=== PATIENT | male | born 1965 | race African-American/Black ===

== ENCOUNTER 2018-11-23 12:38 | Emergency (ER) | payer MEDICAID, OTHER ==
[~2018-11-23] VITALS: Ht 175.3 cm; Wt 65.8 kg
[~2018-11-23 12:38] MED LIST: CYCL10TA9 PO; FLUT9.9S NS; HYDR-3454 PO; NAPR550T PO
[2018-11-23 13:01] LABS: CLARITY,URINE CLOUDY; COLOR,URINE RED
[2018-11-23 13:02] LABS: BACTERIA,URINE MODERATE /HPF; BILIRUBIN,URINE NEGATIVE (NEGATIVE); GLUCOSE, URINE (UA) NEGATIVE (NEGATIVE); KETONES,URINE NEGATIVE (NEGATIVE); LEUKOCYTE ESTERASE ,URINE 2+ (NEGATIVE); NITRITE,URINE NEGATIVE (NEGATIVE); PROTEIN,URINE 2+ (NEGATIVE); RBC,URINE >100 /HPF; UROBILINOGEN,URINE 0.2 MG/DL (NORMAL); WBC,URINE >100 /HPF
[2018-11-23 13:03] LABS: AMORPHOUS SEDIMENT,UR MOD AMOR PHOSPHATE /LPF
[2018-11-23 13:28] LABS: BASOPHILS % (AUTO) 1 % (0-10); EOSINOPHILS % (AUTO) 3 % (0-10); HEMATOCRIT 45 % (40-54); HEMOGLOBIN 14.9 G/DL (13.3-17.7); LYMPHOCYTES # (AUTO) 1.7 X 10^3 (1.0-4.0); LYMPHOCYTES % (AUTO) 17 % (12-44); MEAN CORPUSCULAR HEMOGLOBIN 30 PG (25-34); MEAN CORPUSCULAR HGB CONC 33 G/DL (32-36); MEAN CORPUSCULAR VOLUME 91 FL (80-99); MEAN PLATELET VOLUME 10.6 FL (7.4-10.4); MONOCYTES % (AUTO) 8 % (0-12); NEUTROPHILS # (AUTO) 7.2 X 10^3 (1.8-7.8); NEUTROPHILS % (AUTO) 71 % (42-75); PLATELET COUNT 318 10^3/uL (130-400); RED CELL DISTRIBUTION WIDTH 17.2 % (10.0-14.5); WHITE BLOOD COUNT 10.1 10^3/uL (4.3-11.0)
[2018-11-23 13:29] LABS: BASOPHILS # (AUTO) 0.1 10^3/uL (0.0-0.1); EOSINOPHILS # (AUTO) 0.3 10^3/uL (0.0-0.3); MONOCYTES # (AUTO) 0.8 X 10^3 (0.0-1.0)
[2018-11-23 13:36] LABS: ALANINE AMINOTRANSFERASE 10 U/L (0-55); ALBUMIN 4.2 GM/DL (3.2-4.5); ALKALINE PHOSPHATASE 82 U/L (40-136); BILIRUBIN,TOTAL 0.8 MG/DL (0.1-1.0); BUN/CREATININE RATIO 12; CALCIUM 9.7 MG/DL (8.5-10.1); CARBON DIOXIDE 26 MMOL/L (21-32); CHLORIDE 100 MMOL/L (98-107); CREATININE SERUM 0.98 MG/DL (0.60-1.30); GFR ESTIMATED > 60; GLUCOSE 91 MG/DL (70-105); POTASSIUM 4.5 MMOL/L (3.6-5.0); SODIUM 140 MMOL/L (135-145)
--- NOTE | 2018-11-23 13:43 | ED GU-Female ---
General Chief Complaint: - Urinary Stated Complaint: ABD PAIN Nursing Triage Note: Started having urinary frequency and burning with urination yesterday. Is worse today and is having lower abdominal pain. Rates pain at 10/10 and has not taken anything for pain. Nursing Sepsis Screen: No Definite Risk Source: patient Exam Limitations: no limitations History of Present Illness Date Seen by Provider: Nov 23, 2018 Time Seen by Provider: 13:39 Initial Comments The patient is a 53-year-old black male who presents with complaints of urinary frequency burning and urgency. This began yesterday. This morning he awakened and also had flank pain and chills and a sweat. He has not previously had any history of urinary tract infection. Timing/Duration: yesterday Severity/Quality: moderate Location: generalized flank Radiation: suprapubic Allergies and Home Medications Allergies Coded Allergies: No Known Drug Allergies (Unverified , 06/27/13) Home Medications Fluticasone Propionate 9.9 Ml Rye.susp, 1 SPRAY NS DAILY Prescribed by: EBEN DUFFY on 12/19/15 1615 Patient Home Medication List Home Medication List Reviewed: Yes Review of Systems Review of Systems Constitutional: see HPI EENTM: no symptoms reported Respiratory: no symptoms reported Cardiovascular: no symptoms reported Gastrointestinal: no symptoms reported Genitourinary: see HPI Musculoskeletal: no symptoms reported Skin: no symptoms reported Psychiatric/Neurological: No Symptoms Reported Endocrine: No Symptoms Reported, Excessive Sweating Past Hjcqrad-Nfxzyh-Skhkqv Hx Patient Social History Alcohol Use: Regular Use Recreational Drug Use: No Smoking Status: Current Everyday Smoker Type Used: Cigarettes 2nd Hand Smoke Exposure: Yes Recent Foreign Travel: No Contact w/Someone Who Travel: No Recent Infectious Disease Expo: No Physical Abuse: No Sexual Abuse: No Mistreated: No Fear: No Past Medical History Reproductive Disorders: No Physical Exam Vital Signs Vital Signs - First Documented 11/23/18 12:45 Temp 98.3 Pulse 87 Resp 18 B/P (MAP) 136/104 (115) Pulse Ox 99 Capillary Refill : Less Than 3 Seconds Height, Weight, BMI Height: 5'9.00" Weight: 145lbs. oz. 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, no motor/sensory deficits Skin: normal color Lymphatic: no adenopathy Progress/Results/Core Measures Suspected Sepsis Recent Fever Within 48 Hours: No Infection Criteria Present: Suspected New Infection New/Unexplained Altered Menta: No Sepsis Screen: No Definite Risk SIRS Temperature:98.3 Pulse: 87 Respiratory Rate: 18 Laboratory Tests 11/23/18 13:05: White Blood Count 10.1 Blood Pressure 136 /104 Mean: 115 Laboratory Tests 11/23/18 13:05: Creatinine 0.98, Platelet Count 318, Total Bilirubin 0.8 Results/Orders Lab Results Laboratory Tests Test 11/23/18 12:44 11/23/18 13:05 Range/Units Urine Color RED H Urine Clarity CLOUDY Urine pH 7.0 5-9 Urine Specific Beaver 1.020 1.016-1.022 Urine Protein 2+ H NEGATIVE Urine Glucose (UA) NEGATIVE NEGATIVE Urine Ketones NEGATIVE NEGATIVE Urine Nitrite NEGATIVE NEGATIVE Urine Bilirubin NEGATIVE NEGATIVE Urine Urobilinogen 0.2 NORMAL MG/DL Urine Leukocyte Esterase 2+ H NEGATIVE Urine RBC (Auto) 3+ H NEGATIVE Urine RBC >100 H /HPF Urine WBC >100 H /HPF Urine Squamous Epithelial Cells 2-5 /HPF Urine Crystals PRESENT H /LPF Urine Amorphous Sediment MOD FRANKY PHOSPHATE H /LPF Urine Bacteria MODERATE H /HPF Urine Casts NONE /LPF Urine Mucus NEGATIVE /LPF Urine Culture Indicated YES White Blood Count 10.1 4.3-11.0 10^3/uL Red Blood Count 4.94 4.35-5.85 10^6/uL Hemoglobin 14.9 13.3-17.7 G/DL Hematocrit 45 40-54 % Mean Corpuscular Volume 91 80-99 FL Mean Corpuscular Hemoglobin 30 25-34 PG Mean Corpuscular Hemoglobin Concent 33 32-36 G/DL Red Cell Distribution Width 17.2 H 10.0-14.5 % Platelet Count 318 130-400 10^3/uL Mean Platelet Volume 10.6 H 7.4-10.4 FL Neutrophils (%) (Auto) 71 42-75 % Lymphocytes (%) (Auto) 17 12-44 % Monocytes (%) (Auto) 8 0-12 % Eosinophils (%) (Auto) 3 0-10 % Basophils (%) (Auto) 1 0-10 % Neutrophils # (Auto) 7.2 1.8-7.8 X 10^3 Lymphocytes # (Auto) 1.7 1.0-4.0 X 10^3 Monocytes # (Auto) 0.8 0.0-1.0 X 10^3 Eosinophils # (Auto) 0.3 0.0-0.3 10^3/uL Basophils # (Auto) 0.1 0.0-0.1 10^3/uL Sodium Level 140 135-145 MMOL/L Potassium Level 4.5 3.6-5.0 MMOL/L Chloride Level 100 98-107 MMOL/L Carbon Dioxide Level 26 21-32 MMOL/L Anion Gap 14 5-14 MMOL/L Blood Urea Nitrogen 12 7-18 MG/DL Creatinine 0.98 0.60-1.30 MG/DL Estimat Glomerular Filtration Rate > 60 BUN/Creatinine Ratio 12 Glucose Level 91 70-105 MG/DL Calcium Level 9.7 8.5-10.1 MG/DL Corrected Calcium 9.5 8.5-10.1 MG/DL Total Bilirubin 0.8 0.1-1.0 MG/DL Aspartate Amino Transf (AST/SGOT) 18 5-34 U/L Alanine Aminotransferase (ALT/SGPT) 10 0-55 U/L Alkaline Phosphatase 82 40-136 U/L Total Protein 8.0 6.4-8.2 GM/DL Albumin 4.2 3.2-4.5 GM/DL My Orders Orders - ALVINO SUERO MD Ua Culture If Indicated (11/23/18 12:49) Urine Culture (11/23/18 12:44) Cbc With Automated Diff (11/23/18 13:14) Comprehensive Metabolic Panel (11/23/18 13:14) Ct Abdomen/Pelvis W (11/23/18 13:37) Iohexol Injection (Omnipaque 350 Mg/Ml 1 (11/23/18 14:15) Received Contrast (Hold Metformin- Contr (11/23/18 14:15) Ns (Ivpb) (Sodium Chloride 0.9% Ivpb Bag (11/23/18 14:15) Sodium Chloride Flush (Catheter Flush Sy (11/23/18 14:15) Rocephin 1 Gm Iv (1x Dose) (11/23/18 15:00) Medications Given in ED Current Medications Medications Dose Ordered Sig/Tamara Route Start Time Stop Time Status Last Admin Dose Admin Iohexol 100 ml ONCE ONCE IV 11/23/18 14:15 11/23/18 14:50 DC 11/23/18 14:15 100 ML Sodium Chloride 10 ml NEEDED PRN IV 11/23/18 14:15 11/23/18 14:18 10 ML Sodium Chloride 100 ml ONCE ONCE IV 11/23/18 14:15 11/23/18 14:50 DC 11/23/18 14:16 40 ML Vital Signs/I&O 11/23/18 12:45 Temp 98.3 Pulse 87 Resp 18 B/P (MAP) 136/104 (115) Pulse Ox 99 Capillary Refill : Less Than 3 Seconds Blood Pressure Mean: 115 Departure Communication (Admissions) CT scan showed no evidence of pyelonephritis or other intra-abdominal pathology. Impression Primary Impression: Urinary tract infection Disposition: HOME, SELF-CARE Condition: Stable/Unchanged Departure-Patient Inst. Referrals: NO,LOCAL PHYSICIAN (PCP/Family) Primary Care Physician Patient Instructions: Urinary Tract Infection, Adult (DC) Add. Discharge Instructions: All discharge instructions reviewed with patient and/or family. Voiced understan sascha. Plenty of liquids Take Omnicef twice daily as directed. Begin tomorrow afternoon ALVINO SUERO MD Nov 23, 2018 13:43
--- NOTE | 2018-11-23 13:56 | NUR ---
Received call from [facility] stating that the transfer of patient to [place] will be delayed due to the other truck being [facility] the [facility].
[2018-11-23] MEDS ORDERED: HOLD METFORMIN - RECEIVED CONTRAST 20 ML VIAL IV SCH (14:15)
[2018-11-23] MEDS ORDERED: CATHETER FLUSH 10 ML SYR IV PRN (14:15)
[2018-11-23] MEDS ORDERED: IOHEXOL 350 MG/ML 100 ML (OMNIPAQUE 350) VIAL IV ONE (14:15)
[2018-11-23] MEDS ORDERED: NS 100 ML (IVPB) BAG IV ONE (14:15)
--- NOTE | 2018-11-23 14:53 | Diagnostic Imaging Report ---
PROCEDURE: CT abdomen and pelvis with contrast. TECHNIQUE: Multiple contiguous axial images were obtained through the abdomen and pelvis after administration of intravenous contrast. Auto Exposure Controls were utilized during the CT exam to meet ALARA standards for radiation dose reduction. INDICATION: Right flank pain. FINDINGS: Images through the lower chest show cardiomegaly. The lung bases are clear with no effusion. The liver, gallbladder, and bile ducts are normal. The spleen, pancreas, and adrenals are normal. There are several small renal cysts present. No calculus or hydronephrosis is seen on either side. The ureters and bladder are normal. No acute bowel abnormality is seen. The appendix is not visualized with no inflammation seen in the right lower quadrant. There is no free intraperitoneal air or fluid. There is no acute bony abnormality. IMPRESSION: No acute abnormality is seen. There is cardiomegaly. Dictated by: Dictated on workstation # [id number]
[2018-11-23] MEDS ORDERED: cefTRIAXone FOR IV USE 1,000 MG in WATER (STERILE) FOR INJECTION 10 ML IV ONE (15:00)
[2018-11-23] MEDS ORDERED: CEFD300C3 PO (15:04)
[2018-11-23 15:12] VITALS: BP 145/94
== END 2018-11-23 15:05 | disposition home or self-care (01) ==
LOC: EDUNIT# 12:38 → ER FS 12:40
DX: N39.0 Urinary tract infection, site not specified (principal); F17.210 Nicotine dependence, cigarettes, uncomplicated; Z79.51 Long term (current) use of inhaled steroids
CPT/HCPCS: 36415; 74177; 80053; 81000; 85025; 87077; 87088; 87186; 96374

== ENCOUNTER 2018-12-12 11:29 | Emergency (ER) | payer OTHER ==
[~2018-12-12] VITALS: Ht 175.3 cm; Wt 65.8 kg
[~2018-12-12 11:29] MED LIST changes: +CEFD300C3 PO
--- OUTSIDE RECORDS SUMMARY | 2018-12-12 11:34 | XMS REPORT ---
Author Author YOSELIN CARDENAS [facility] Address [address] [place] [address] Care Team Providers Care Alpaca Farmer Name Role Phone CORINNA CARDENASNETTE Unavailable PROBLEMS Unknown Problems ALLERGIES Substance Reaction Event Type Date Status N.K.D.A. Unknown Non Drug Allergy Feb, Unknown SOCIAL HISTORY No smoking Hx information available PLAN OF CARE Activity Details Follow Up 2 Weeks Reason: VITAL SIGNS Height 69 in 2016-02-27 Weight 131.0 lbs 2016-02-27 Temperature 98.4 degrees Fahrenheit 2016-02-27 Heart Rate 88 bpm 2016-02-27 Respiratory Rate 22 2016-02-27 BMI 19.34 kg/m2 2016-02-27 Blood pressure systolic 150 mmHg 2016-02-27 Blood pressure diastolic 108 mmHg 2016-02-27 MEDICATIONS Medication Instructions Dosage Frequency Start Date End Date Duration Status PredniSONE 10 mg Orally twice a day 1 tablet 12h Feb, Feb, 05 days Active Amoxicillin 875 MG Orally every 12 hrs 1 tablet 12h Feb, Feb, 10 day(s) Active RESULTS No Results PROCEDURES Procedure Date Ordered Related Diagnosis Body Site Office Visit, New Pt., Level 3 Feb 27, 2016 IMMUNIZATIONS No Known Immunizations
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
--- OUTSIDE RECORDS SUMMARY | 2018-12-12 11:34 | XMS REPORT ---
Author Author HOLLY SANCHEZ Organization [facility] Address [address] [place] [address] Care Team Providers Care Automobile Mechanic Apprentice Name Role Phone HOLLY SANCHEZ Unavailable PROBLEMS Unknown Problems ALLERGIES No Known Allergies ENCOUNTERS Encounter Location Date Diagnosis [facility] [id number] [place] [id number] Apr, [facility] [id number] [place] [id number] Mar, Pain in tooth K08.8 and Blood pressure elevated without history of HTN R03.0 [facility] [id number] [id number] Feb, Acute non-recurrent maxillary sinusitis J01.00 and Elevated blood pressure I10 IMMUNIZATIONS No Known Immunizations SOCIAL HISTORY Never Assessed REASON FOR VISIT Tooth Pain has been bothering him for a few days and the pain is just getting wo rseMaria Teresa Herrmann MA PLAN OF CARE Activity Details Follow Up With dental for appopriate dental care Reason: VITAL SIGNS Height 69 in 2018-03-27 Weight 132.0 lbs 2018-03-27 Temperature 99.0 degrees Fahrenheit 2018-03-27 Heart Rate 87 bpm 2018-03-27 Respiratory Rate 20 2018-03-27 BMI 19.49 kg/m2 2018-03-27 Blood pressure systolic 152 mmHg 2018-03-27 Blood pressure diastolic 100 mmHg 2018-03-27 MEDICATIONS Medication Instructions Dosage Frequency Start Date End Date Duration Status Naproxen 500 mg Orally every 12 hrs 1 tablet with food or milk as needed 12h Mar, Mar, 10 days Active Amoxicillin 500 mg Orally every 8 hrs 1 capsule 8h Mar, Mar, 10 day(s) Active RESULTS No Results PROCEDURES No Known procedures INSTRUCTIONS MEDICATIONS ADMINISTERED No Known Medications MEDICAL (GENERAL) HISTORY Type Description Date Surgical History No know Surgical history
--- NOTE | 2018-12-12 12:36 | NUR ---
pt here by self. pt alert [facility] 15. pt seen lianne tillman 2 weeks ago. dx uti. pt finished antibiotics but is not better. pt c/o blood in ua and pain with ua and ua " spurts". denies penile c/c but c/o right testicle pain. pt also points to bladder area for pain as well. . pain rating 10.pt denies n/v /d but c/o cough and hot/ cold feeling. dry nonproductive cough in er pt is a smoker. denies dyspnea and no acute sighns of dyspnea noted. sherice gs equal cta bilaterally. abd soft nondistended tender to palpation bladder area only. done tanya pt 1211.
--- NOTE | 2018-12-12 12:52 | ED GU-Male ---
General Chief Complaint: - Urinary Stated Complaint: UTI Nursing Triage Note: pt seen [facility] 2 weeks ago. dx uti. finished antibiotic. pt not better. Source: patient Exam Limitations: no limitations History of Present Illness Date Seen by Provider: Dec 12, 2018 Time Seen by Provider: 12:50 Initial Comments To ER with reports of urinary tract infection. He was seen at [facility] on 11/23/18 and diagnosed with urinary tract infection, given intravenous Rocephin and a prescription for Omnicef. His symptoms of flank pain, urinary hesitancy and burning on urination improved and went away. About 2 days ago they returned. He now has posterior right testicular pain and fevers intermittently. He denies any flank pain nausea or vomiting. Timing/Duration: just prior to arrival Severity/Quality: moderate Radiation: none Activities at Onset: none Prior Genitourinary Problems: none Associated Symptoms: dysuria Allergies and Home Medications Allergies Coded Allergies: No Known Drug Allergies (Unverified , 06/27/13) Home Medications Cefdinir 300 Mg Capsule, 1 CAP PO twice a day Prescribed by: ALVINO SUERO on 11/23/18 1504 Fluticasone Propionate 9.9 Ml [place].susp, 1 SPRAY NS DAILY Prescribed by: EBEN DUFFY on 12/19/15 1615 Levofloxacin 500 Mg Tablet, 500 MG PO DAILY Prescribed by: EBEN DUFFY on 12/12/18 1322 Patient Home Medication List Home Medication List Reviewed: Yes Review of Systems Review of Systems Constitutional: see HPI, fever EENTM: see HPI Respiratory: no symptoms reported Cardiovascular: no symptoms reported Genitourinary: see HPI, dysuria Musculoskeletal: no symptoms reported Skin: no symptoms reported Psychiatric/Neurological: No Symptoms Reported Endocrine: No Symptoms Reported Hematologic/Lymphatic: No Symptoms Reported Past Xxtffeg-Wgkcqi-Uxdkci Hx Patient Social History Alcohol Use: Occasionally Uses Recreational Drug Use: No Smoking Status: Current Everyday Smoker Type Used: Cigarettes 2nd Hand Smoke Exposure: Yes Recent Foreign Travel: No Contact w/Someone Who Travel: No Recent Infectious Disease Expo: No Physical Abuse: No Sexual Abuse: No Past Medical History Reproductive Disorders: No Physical Exam Vital Signs Vital Signs - First Documented 12/12/18 12:36 Temp 100.1 Pulse 92 Resp 20 B/P (MAP) 143/116 (125) Pulse Ox 100 O2 Delivery Room Air Capillary Refill : Less Than 3 Seconds Height, Weight, BMI Height: 5'9.00" Weight: 145lbs. oz. 65.722931bi; BMI Method:Stated General Appearance: WD/WN, no apparent distress HEENT: PERRL/EOMI, normal ENT inspection Neck: non-tender, full range of motion Respiratory: no respiratory distress, no accessory muscle use Gastrointestinal: normal bowel sounds, non tender Genital/Rectal: other (There is testicular tenderness on the right to the posterior inferior aspect of the testicle. There is no crepitus or cellulitis of the scrotum) Extremities: normal range of motion, non-tender Neurologic/Psychiatric: alert, normal mood/affect, oriented x 3 Skin: normal color, warm/dry Progress/Results/Core Measures Suspected Sepsis Recent Fever Within 48 Hours: No Infection Criteria Present: Suspected New Infection New/Unexplained Altered Menta: No Sepsis Screen: No Definite Risk SIRS Temperature:100.1 Pulse: 92 Respiratory Rate: 20 Laboratory Tests 12/12/18 13:08: White Blood Count 12.0H Blood Pressure 143 /116 Mean: 125 Laboratory Tests 12/12/18 13:08: Creatinine 1.09, Platelet Count 228 Results/Orders Lab Results Laboratory Tests Test 12/12/18 12:57 12/12/18 13:08 Range/Units Urine Color YELLOW Urine Clarity CLEAR Urine pH 7 5-9 Urine Specific [place] 1.010 L 1.016-1.022 Urine Protein 2+ H NEGATIVE Urine Glucose (UA) NEGATIVE NEGATIVE Urine Ketones NEGATIVE NEGATIVE Urine Nitrite POSITIVE H NEGATIVE Urine Bilirubin NEGATIVE NEGATIVE Urine Urobilinogen NORMAL NORMAL MG/DL Urine Leukocyte Esterase 3+ H NEGATIVE Urine RBC (Auto) 5+ H NEGATIVE Urine RBC 10-25 H /HPF Urine WBC TNTC H /HPF Urine Squamous Epithelial Cells NONE /HPF Urine Crystals NONE /LPF Urine Bacteria LARGE H /HPF Urine Casts NONE /LPF Urine Mucus NEGATIVE /LPF Urine Culture Indicated YES White Blood Count 12.0 H 4.3-11.0 10^3/uL Red Blood Count 5.12 4.35-5.85 10^6/uL Hemoglobin 15.1 13.3-17.7 G/DL Hematocrit 45 40-54 % Mean Corpuscular Volume 88 80-99 FL Mean Corpuscular Hemoglobin 30 25-34 PG Mean Corpuscular Hemoglobin Concent 34 32-36 G/DL Red Cell Distribution Width 15.5 H 10.0-14.5 % Platelet Count 228 130-400 10^3/uL Mean Platelet Volume 10.5 H 7.4-10.4 FL Neutrophils (%) (Auto) 73 42-75 % Lymphocytes (%) (Auto) 14 12-44 % Monocytes (%) (Auto) 11 0-12 % Eosinophils (%) (Auto) 1 0-10 % Basophils (%) (Auto) 0 0-10 % Neutrophils # (Auto) 8.8 H 1.8-7.8 X 10^3 Lymphocytes # (Auto) 1.7 1.0-4.0 X 10^3 Monocytes # (Auto) 1.4 H 0.0-1.0 X 10^3 Eosinophils # (Auto) 0.1 0.0-0.3 10^3/uL Basophils # (Auto) 0.0 0.0-0.1 10^3/uL Sodium Level 141 135-145 MMOL/L Potassium Level 4.4 3.6-5.0 MMOL/L Chloride Level 103 98-107 MMOL/L Carbon Dioxide Level 26 21-32 MMOL/L Anion Gap 12 5-14 MMOL/L Blood Urea Nitrogen 9 7-18 MG/DL Creatinine 1.09 0.60-1.30 MG/DL Estimat Glomerular Filtration Rate > 60 BUN/Creatinine Ratio 8 Glucose Level 95 70-105 MG/DL Calcium Level 10.0 8.5-10.1 MG/DL My Orders Orders - EBEN DUFFY APRN Ua Culture If Indicated (12/12/18 11:57) Neis Mir Dna Urine Test (12/12/18 12:48) Chlamydia Trachomatis Urine (12/12/18 12:48) Cbc With Automated Diff (12/12/18 12:48) Basic Metabolic Panel (12/12/18 12:48) Ed Iv/Invasive Line Start (12/12/18 12:48) Us Scrotum (Testicle) [id number] (12/12/18 12:48) Ketorolac Injection (Toradol Injection) (12/12/18 13:00) Phenazopyridine Tablet (Pyridium Tablet) (12/12/18 13:00) Ceftriaxone For Iv Use (Rocephin For I (12/12/18 13:30) Azithromycin Tablet (Zithromax Tablet) (12/12/18 13:30) Urine Culture (12/12/18 12:57) Medications Given in ED Current Medications Medications Dose Ordered Sig/Tamara Route Start Time Stop Time Status Last Admin Dose Admin Ceftriaxone Sodium 1000 mg/ Sterile Water 10 ml @ 200 mls/hr ONCE ONCE IV 12/12/18 13:30 12/12/18 13:32 DC 12/12/18 13:35 200 MLS/HR Ketorolac Tromethamine 30 mg ONCE ONCE IVP 12/12/18 13:00 12/12/18 13:01 DC 12/12/18 13:12 30 MG Phenazopyridine HCl 100 mg ONCE ONCE PO 12/12/18 13:00 12/12/18 13:01 DC 12/12/18 13:06 100 MG Vital Signs/I&O 12/12/18 12:36 Temp 100.1 Pulse 92 Resp 20 B/P (MAP) 143/116 (125) Pulse Ox 100 O2 Delivery Room Air Capillary Refill : Less Than 3 Seconds Blood Pressure Mean: 125 Departure Impression Primary Impression: Urinary tract infection Qualified Codes: N30.00 - Acute cystitis without hematuria Additional Impression: Epididymitis Disposition: HOME, SELF-CARE Condition: Stable Departure-Patient Inst. Decision time for Depature: 13:21 Referrals: NO,LOCAL PHYSICIAN (PCP/Family) Primary Care Physician Patient Instructions: Epididymitis Add. Discharge Instructions: 1. Return to ER for any concerns 2. Start the antibiotic tomorrow. We should have the STD results back within 1 week. All discharge instructions reviewed with patient and/or family. Voiced understanding. Scripts Hydrocodone/Acetaminophen ([place] 5-325 Tablet) 1 Each Tablet 1 TAB PO Q4-6HR for Pain MDD 10 TABS for 2 Days, #14 TAB Prov: EBEN DUFFY COMMUNICATIONS DIRECTOR 12/12/18 Levofloxacin (Levaquin) 500 Mg Tablet 500 MG PO DAILY, #10 TAB Prov: EBEN DUFFY COMMUNICATIONS DIRECTOR 12/12/18 EBEN DUFFY COMMUNICATIONS DIRECTOR Dec 12, 2018 12:52
--- NOTE | 2018-12-12 12:57 | NUR ---
ua tolab byme
[2018-12-12] MEDS ORDERED: KETOROLAC 30 MG/ML VIAL IVP ONE (13:00)
[2018-12-12] MEDS ORDERED: PHENAZOPYRIDINE 100 MG (PYRIDIUM) TABLET PO ONE (13:00)
--- NOTE | 2018-12-12 13:07 | NUR ---
actual time toradol given.
[2018-12-12 13:08] LABS: BILIRUBIN,URINE NEGATIVE (NEGATIVE); CLARITY,URINE CLEAR; COLOR,URINE YELLOW; GLUCOSE, URINE (UA) NEGATIVE (NEGATIVE); KETONES,URINE NEGATIVE (NEGATIVE); LEUKOCYTE ESTERASE ,URINE 3+ (NEGATIVE); NITRITE,URINE POSITIVE (NEGATIVE); PH,URINE 7 (5-9); PROTEIN,URINE 2+ (NEGATIVE); UROBILINOGEN,URINE NORMAL (NORMAL)
--- NOTE | 2018-12-12 13:08 | NUR ---
alejandro quinonez by me
[2018-12-12 13:15] LABS: BASOPHILS % (AUTO) 0 % (0-10); EOSINOPHILS # (AUTO) 0.1 10^3/uL (0.0-0.3); EOSINOPHILS % (AUTO) 1 % (0-10); HEMATOCRIT 45 % (40-54); HEMOGLOBIN 15.1 G/DL (13.3-17.7); LYMPHOCYTES # (AUTO) 1.7 X 10^3 (1.0-4.0); LYMPHOCYTES % (AUTO) 14 % (12-44); MEAN CORPUSCULAR HEMOGLOBIN 30 PG (25-34); MEAN CORPUSCULAR HGB CONC 34 G/DL (32-36); MEAN CORPUSCULAR VOLUME 88 FL (80-99); MEAN PLATELET VOLUME 10.5 FL (7.4-10.4); MONOCYTES # (AUTO) 1.4 X 10^3 (0.0-1.0); MONOCYTES % (AUTO) 11 % (0-12); NEUTROPHILS # (AUTO) 8.8 X 10^3 (1.8-7.8); NEUTROPHILS % (AUTO) 73 % (42-75); PLATELET COUNT 228 10^3/uL (130-400); RED CELL DISTRIBUTION WIDTH 15.5 % (10.0-14.5)
[2018-12-12 13:19] LABS: BACTERIA,URINE LARGE /HPF; WBC,URINE TNTC /HPF
[2018-12-12] MEDS ORDERED: LEVO500T2 PO (13:22)
[2018-12-12] MEDS ORDERED: cefTRIAXone FOR IV USE 1,000 MG in WATER (STERILE) FOR INJECTION 10 ML IV ONE (13:30)
[2018-12-12 13:32] LABS: BUN/CREATININE RATIO 8; CARBON DIOXIDE 26 MMOL/L (21-32); CHLORIDE 103 MMOL/L (98-107); CREATININE SERUM 1.09 MG/DL (0.60-1.30); GFR ESTIMATED > 60; GLUCOSE 95 MG/DL (70-105); POTASSIUM 4.4 MMOL/L (3.6-5.0); SODIUM 141 MMOL/L (135-145)
--- NOTE | 2018-12-12 13:32 | NUR ---
actual time zithromax given
[2018-12-12] MEDS: AZITHROMYCIN 250 MG TAB (ZITHROMAX) PO SCH (13:36)
--- NOTE | 2018-12-12 14:00 | Diagnostic Imaging Report ---
INDICATION: Scrotal pain and swelling TECHNIQUE: Duplex ultrasound of the scrotum and contents was done with grayscale, spectral waveform and color flow Doppler analysis. FINDINGS: The right testicle measures 3.7 x 2.5 x 2.9 cm. The left testicle measures 4.1 x 2.4 x 2.8 cm. The testicles have homogeneous echogenicity and normal blood flow bilaterally. The epididymides are enlarged and hyperemic bilaterally. There are small bilateral hydroceles. IMPRESSION: Bilateral epididymitis. Dictated by: Dictated on workstation # [id number]
[2018-12-12] MEDS ORDERED: HYDR-4226 PO (14:07)
[2018-12-12 14:25] VITALS: BP 122/90
--- NOTE | 2018-12-12 14:25 | NUR ---
d/c instructions to pt. told to read all papers. scripts fax and paper. pt left ambulatory by self. pt knows f/u. i went over the handtyped by dr kelly on the chart. iv d/cd by me prior to d/c.
== END 2018-12-12 14:25 | disposition home or self-care (01) ==
LOC: EDUNIT# 11:29 → ER 11:30
DX: N39.0 Urinary tract infection, site not specified (principal); N45.1 Epididymitis; F17.210 Nicotine dependence, cigarettes, uncomplicated; Z79.51 Long term (current) use of inhaled steroids
CPT/HCPCS: 36415; 76870; 80048; 81000; 85025; 87077; 87088; 87186; 87491; 87591; 96374; 96375

== ENCOUNTER 2020-10-08 21:56 | Emergency (ER) | payer OTHER, BC ==
[~2020-10-08] VITALS: Ht 175 cm; Wt 69.0 kg
[~2020-10-08 21:56] MED LIST changes: +HYDR-4226 PO; +LEVO500T2 PO
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
[2020-10-08] MEDS ORDERED: TETANUS,DIPTH,PERTUSS P/F (BOOSTRIX) 0.5 ML VIAL IM ONE (22:15)
[2020-10-08] MEDS ORDERED: fentaNYL INJ 100 MCG/2 ML AMP IVP ONE (22:15)
[2020-10-08 22:20] LABS: HEMOGLOBIN 14.6 g/dL (13.3-17.7); MEAN PLATELET VOLUME 10.2 fL (9.0-12.2); WHITE BLOOD COUNT 5.5 10^3/uL (4.3-11.0)
[2020-10-08 22:31] LABS: ALBUMIN 3.8 GM/DL (3.2-4.5); CHLORIDE 107 MMOL/L (98-107); POTASSIUM 3.1 MMOL/L (3.6-5.0); SODIUM 143 MMOL/L (135-145)
[2020-10-08 22:32] LABS: CALCIUM 8.7 MG/DL (8.5-10.1)
[2020-10-08 22:34] LABS: GLUCOSE 89 MG/DL (70-105); TOTAL PROTEIN 6.8 GM/DL (6.4-8.2)
[2020-10-08 22:35] LABS: BILIRUBIN,TOTAL 0.9 MG/DL (0.1-1.0); CARBON DIOXIDE 23 MMOL/L (21-32)
[2020-10-08 22:37] LABS: ALKALINE PHOSPHATASE 74 U/L (40-136); CREATININE SERUM 1.14 MG/DL (0.60-1.30); GFR ESTIMATED > 60
[2020-10-08 22:38] LABS: BUN/CREATININE RATIO 11
[2020-10-08 22:39] LABS: BILIRUBIN,DIRECT 0.4 MG/DL (0.0-0.3); BILIRUBIN,INDIRECT 0.5 MG/DL
[2020-10-08 22:40] LABS: ALANINE AMINOTRANSFERASE 47 U/L (0-55)
[2020-10-08 23:26] LABS: BILIRUBIN,URINE NEGATIVE (NEGATIVE); CLARITY,URINE CLEAR; COLOR,URINE YELLOW; GLUCOSE, URINE (UA) NEGATIVE (NEGATIVE); KETONES,URINE NEGATIVE (NEGATIVE); LEUKOCYTE ESTERASE ,URINE TRACE (NEGATIVE); NITRITE,URINE POSITIVE (NEGATIVE); PROTEIN,URINE TRACE (NEGATIVE)
[2020-10-08 23:34] LABS: BACTERIA,URINE MODERATE /HPF; RBC,URINE 0-2 /HPF; SQUAMOUS EPITHELIAL CELL,UR 0-2 /HPF
[2020-10-08 23:40] LABS: AMPHETAMINE SCREEN, URINE NEGATIVE (NEGATIVE); BARBITURATE SCREEN URINE NEGATIVE (NEGATIVE); BENZODIAZEPINES SCREEN URINE NEGATIVE (NEGATIVE); CANNABINOID SCREEN, URINE NEGATIVE (NEGATIVE); COCAINE SCREEN URINE NEGATIVE (NEGATIVE); METHADONE STAT NEGATIVE (NEGATIVE); METHAMPHETAMINE SCREEN URINE S NEGATIVE (NEGATIVE); OPIATE SCREEN URINE NEGATIVE (NEGATIVE); OXYCODONE STAT NEGATIVE (NEGATIVE); PROPOXYPHENE STAT NEGATIVE (NEGATIVE); TRICYCLIC ANTIDEPRESSANTS SCRE NEGATIVE (NEGATIVE)
[2020-10-08] MEDS ORDERED: CIPR500T5 PO (23:56)
[2020-10-09] VITALS: BP 126/88
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
[2020-10-10] MEDS ORDERED: CYCL10TA9 PO (14:56)
[2020-10-10] MEDS ORDERED: NAPR-1071 PO (14:56)
== END 2020-10-09 | disposition home or self-care (01) ==
LOC: EDUNIT# 21:56 → ER 22:02
DX: S06.0X0A Concussion without loss of consciousness, initial encounter (principal); S50.812A Abrasion of left forearm, initial encounter; R07.89 Other chest pain; N39.0 Urinary tract infection, site not specified; R40.2410 Glasgow coma scale score 13-15, unspecified time; Z23 Encounter for immunization; Z77.22 Contact with and (suspected) exposure to environmental tobacco smoke (acute) (chronic); V89.2XXA Person injured in unspecified motor-vehicle accident, traffic, initial encounter
CPT/HCPCS: 70450; 71045; 71260; 72125; 74177; 80048; 80076; 80306; 81000; 85027; 86850; 86900; 86901; 87088; G0480; 36415; 80320; 87077; 87186; 90715; 93041

== ENCOUNTER 2020-10-10 13:43 | Emergency (ER) | payer OTHER, BC ==
[~2020-10-10] VITALS: Ht 179.8 cm; Wt 75.0 kg
[~2020-10-10 13:43] MED LIST changes: +CIPR500T5 PO
[2020-10-10 14:18] VITALS: BP 137/105
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
[2020-10-10] MEDS ORDERED: CYCL10TA9 PO (14:56)
[2020-10-10] MEDS ORDERED: NAPR-1071 PO (14:56)
[2020-10-10] MEDS ORDERED: KETOROLAC 60 MG/2 ML VIAL IM ONE (15:15)
== END 2020-10-10 15:18 | disposition home or self-care (01) ==
LOC: EDUNIT# 13:43 → ER 13:45
DX: M62.838 Other muscle spasm (principal); F17.210 Nicotine dependence, cigarettes, uncomplicated
CPT/HCPCS: 99284